=== PATIENT | female | born 1940 | race Two or more races ===

== ENCOUNTER 2021-03-14 10:26 | Inpatient (IN) | payer MEDICARE, OTHER ==
[~2021-03-14] VITALS: Ht 160 cm; Wt 72.6 kg
[2021-03-14] MEDS ORDERED: SODIUM CHLORIDE 0.9% 1,000 ML IV ONE (10:45)
[2021-03-14 11:09] LABS: Basophils # (auto) 0 10 ^3/uL (0-0.2); Eosinophils # (auto) 0 10 ^3/uL (0-0.8); Hemoglobin 11.6 g/dL (12.2-16.2); Monocytes # (auto) 0.9 10 ^3/uL (0-1.3)
[2021-03-14 11:11] LABS: Basophils % (auto) 0.2 % (0.0-2.0); Eosinophils % (auto) 0.2 % (0.0-7.0); Lymphocytes # (auto) 0.9 10 ^3/uL (0.4-5.4); Lymphocytes % (auto) 4.6 % (10.0-50.0); Mean Corpuscular Hemoglobin 33.6 pg (28.0-32.0); Mean Corpuscular Hgb Conc. 33.1 g/dL (32.0-36.0); Mean Corpuscular Volume 101.6 fL (80.0-100.0); Monocytes % (auto) 4.6 % (0.0-12.0); Neutrophils % (auto) 90.4 % (37.0-80.0); Red Blood Cells 3.44 10^6/uL (4.0-5.20); Red Cell Distribution Width 17.1 % (11.8-14.3); White Blood Cell 19.9 10^3/uL (4.4-10.8)
[2021-03-14 11:32] LABS: Urine Bacteria NONE SEEN /hpf (None Seen); Urine Blood 2+ /uL (Negative); Urine Hyaline Cast MOD /lpf (0 - 2); Urine Mucus FEW (None Seen); Urine Specific Gravity 1.016 (1.001-1.035); Urine WBC 258 /hpf (0 - 5)
[2021-03-14 12:31] LABS: Potassium 4.6 mmol/L (3.5-5.1)
[2021-03-14 12:46] LABS: Albumin 1.5 g/dL (3.4-5.0); BUN/Creatinine Ratio 22.3; Bilirubin, Total 0.6 mg/dL (0.2-1.0); Calcium 6.3 mg/dL (8.5-10.1); Total Protein 6.7 g/dL (6.4-8.2)
[2021-03-14] MEDS ORDERED: AZITHROMYCIN 500MG/ 250ML 250 ML IV ONE (13:45)
[2021-03-14] MEDS ORDERED: cefTRIAXone 1GM/50ML D5W 50 ML IV ONE (13:45)
[2021-03-14 15:53] LABS: Lactic Acid w/Reflex 2.9 mmol/L (0.4-2.0)
[2021-03-14] MEDS ORDERED: NITROGLYCERIN 0.4 MG SL TAB SL PRN (16:00)
[2021-03-14] MEDS ORDERED: ACETAMINOPHEN 325 MG TAB PO PRN (16:00)
[2021-03-14] MEDS ORDERED: PIPERACILLIN-TAZOB 3.375GM 100 ML IV ONE (16:00)
[2021-03-14] MEDS: SODIUM CHLORIDE 0.9% 1,000 ML IV SCH (17:12)
[2021-03-14] MEDS ORDERED: traMADol HCL 50 MG TAB PO PRN (18:30)
[2021-03-14] MEDS: LINEZOLID 600MG/300ML 300 ML IV SCH (22:10)
[2021-03-15] MEDS: PIPERACILLIN-TAZOB 3.375GM 100 ML IV SCH ×2 (00:30→07:45)
[2021-03-15] MEDS ORDERED: TEMAZEPAM 15 MG CAP PO ONE (01:15)
[2021-03-15] MEDS ORDERED: ALBUMIN 5% 250 ML IV ONE (02:45)
[2021-03-15] MEDS ORDERED: NOREPINEPHRINE 8 MG/250ML KIT 250 ML IV ONE (03:25)
[2021-03-15] MEDS: NOREPINEPHRINE 8 MG/250ML KIT 250 ML IV SCH ×2 (03:30→14:28)
[2021-03-15] MEDS: MORPHINE SULFATE INJECTION 2 MG/ML SYRG IV PRN ×3 (04:20→11:39)
[2021-03-15] MEDS: SODIUM CHLORIDE 0.9% 1,000 ML IV SCH (05:21)
[2021-03-15 06:52] LABS: Basophils # (auto) 0 10 ^3/uL (0-0.2); Basophils % (auto) 0.2 % (0.0-2.0); Hemoglobin 10.4 g/dL (12.2-16.2); Lymphocytes # (auto) 0.8 10 ^3/uL (0.4-5.4); Mean Corpuscular Hemoglobin 33.5 pg (28.0-32.0); Monocytes # (auto) 0.7 10 ^3/uL (0-1.3); Monocytes % (auto) 3.6 % (0.0-12.0); Nucleated Red Blood Cells % 0.1 %; Red Blood Cells 3.11 10^6/uL (4.0-5.20)
[2021-03-15 06:53] LABS: Eosinophils # (auto) 0.7 10 ^3/uL (0-0.8); Eosinophils % (auto) 3.5 % (0.0-7.0); Hematocrit 31.6 % (36.0-46.0); Mean Corpuscular Volume 101.7 fL (80.0-100.0); Neutrophils # (auto) 18.1 10 ^3/uL (1.6-8.6); Neutrophils % (auto) 88.7 % (37.0-80.0); Red Cell Distribution Width 17.1 % (11.8-14.3); White Blood Cell 20.4 10^3/uL (4.4-10.8)
[2021-03-15 07:08] LABS: Albumin 1.9 g/dL (3.4-5.0); Calcium 7.5 mg/dL (8.5-10.1); Potassium 4.7 mmol/L (3.5-5.1)
[2021-03-15 07:12] LABS: BUN/Creatinine Ratio 24.3; Bilirubin, Total 0.8 mg/dL (0.2-1.0); Total Protein 7.7 g/dL (6.4-8.2)
[2021-03-15] MEDS: LINEZOLID 600MG/300ML 300 ML IV SCH ×2 (10:10→22:15)
[2021-03-15] MEDS ORDERED: MORPHINE SULFATE INJECTION 2 MG/ML SYRG IV PRN (11:15)
[2021-03-15] MEDS ORDERED: HEPARIN SODIUM (PORCINE) 5000 UNITS/ML 1ML VIAL IV ONE (12:15)
[2021-03-15] MEDS ORDERED: MEROPENEM 500MG IVPB 50 ML IV ONE (12:30)
[2021-03-15] MEDS: SODIUM BICARBONATE 50ML VIAL 75 ML in D5W 5% 1,000 ML IV SCH ×2 (13:07→22:52)
[2021-03-15] MEDS: FAMOTIDINE (10MG/ML) 2ML VL IV SCH (13:21)
[2021-03-15 13:30] LABS: Basophils # (auto) 0.1 10 ^3/uL (0-0.2); Basophils % (auto) 0.3 % (0.0-2.0); Lymphocytes # (auto) 1.2 10 ^3/uL (0.4-5.4); Nucleated Red Blood Cells % 0.2 %
[2021-03-15 13:32] LABS: Eosinophils # (auto) 0.5 10 ^3/uL (0-0.8); Eosinophils % (auto) 2.3 % (0.0-7.0); Hematocrit 32.9 % (36.0-46.0); Hemoglobin 10.7 g/dL (12.2-16.2); Lymphocytes % (auto) 5.7 % (10.0-50.0); Mean Corpuscular Hemoglobin 33.2 pg (28.0-32.0); Mean Corpuscular Hgb Conc. 32.5 g/dL (32.0-36.0); Mean Corpuscular Volume 102.3 fL (80.0-100.0); Monocytes # (auto) 0.9 10 ^3/uL (0-1.3); Monocytes % (auto) 4.4 % (0.0-12.0); Neutrophils # (auto) 17.5 10 ^3/uL (1.6-8.6); Neutrophils % (auto) 87.3 % (37.0-80.0); Red Blood Cells 3.22 10^6/uL (4.0-5.20); Red Cell Distribution Width 17.5 % (11.8-14.3); White Blood Cell 20.1 10^3/uL (4.4-10.8)
[2021-03-15 13:50] LABS: INR 1.37 (0.9-1.15); Partial Thromboplastin Time 46.4 sec (23.6-33.0)
[2021-03-15 14:07] LABS: Folate (Folic Acid) 12.09 ng/mL (5.38-24)
[2021-03-15] MEDS: HEPARIN DRIP/D5W 100UNITS/ML 250 ML IV SCH (14:25)
[2021-03-15] MEDS: MEROPENEM 500MG IVPB 50 ML IV SCH (20:47)
[2021-03-15 20:51] LABS: INR 1.44 (0.9-1.15)
[2021-03-15] MEDS ORDERED: MEROPENEM 1GM IVPB 100 ML IV SCH (22:00)
[2021-03-15] MEDS ORDERED: DIGOXIN (250MCG/ML) 2 ML AMPULE ONE ×2 (22:20→22:45)
[2021-03-15] MEDS ORDERED: AMIODARONE 450mg/250ml AE 250 ML IV ONE (23:08)
[2021-03-15] MEDS ORDERED: AMIODARONE 450mg/250ml AE 250 ML IV SCH (23:15)
[2021-03-16] MEDS: SODIUM BICARBONATE 50ML VIAL 75 ML in D5W 5% 1,000 ML IV SCH (00:32)
[2021-03-16 02:00] VITALS: BP 129/59
[2021-03-16] MEDS: AMIODARONE 450mg/250ml AE 250 ML IV SCH ×3 (05:23→16:21)
[2021-03-16 06:54] VITALS: BP 117/76
[2021-03-16 07:16] LABS: BUN/Creatinine Ratio 23.3; Blood Urea Nitrogen 41 mg/dL (7-18); Carbon Dioxide 12 mmol/L (21-32); GFR African American 36 mL/min; GFR Non-African American 30 mL/min; Glucose 228 mg/dL (74-106)
[2021-03-16 07:43] LABS: Hematocrit 38.6 % (36.0-46.0); Hemoglobin 12.6 g/dL (12.2-16.2); Mean Corpuscular Hemoglobin 34.2 pg (28.0-32.0); Mean Corpuscular Hgb Conc. 32.5 g/dL (32.0-36.0); Mean Corpuscular Volume 105.3 fL (80.0-100.0); Red Blood Cells 3.67 10^6/uL (4.0-5.20); Red Cell Distribution Width 17.8 % (11.8-14.3); White Blood Cell 22.5 10^3/uL (4.4-10.8)
[2021-03-16 07:54] LABS: Basophils % (manual) 0 (0.0-2.0); Blast Cells 0; Eosinophils % (manual) 0 (0-7); Myelocytes % 0; Promyelocytes % 0; Reactive Lymphocytes 0
[2021-03-16 08:09] LABS: INR 1.66 (0.9-1.15)
[2021-03-16 08:19] LABS: Partial Thromboplastin Time 73.3 sec (23.6-33.0)
[2021-03-16 08:34] LABS: Band Neutrophils % (manual) 22; Lymphocytes % (manual) 11 (10.0-50.0); Metamyelocytes % 1; Monocytes % (manual) 1 (0-12)
[2021-03-16] MEDS: MEROPENEM 500MG IVPB 50 ML IV SCH ×2 (08:37→20:33)
[2021-03-16 08:42] LABS: CRP High Sensitivity > 19.0 mg/dL (< 0.3)
[2021-03-16] MEDS: DIGOXIN (250MCG/ML) 2 ML AMPULE IV SCH ×2 (09:14→14:30)
[2021-03-16 09:16] LABS: Anion Gap 12 (5-15); Chloride 105 mmol/L (98-107); Potassium 5.4 mmol/L (3.5-5.1); Sodium 129 mmol/L (136-145)
[2021-03-16] MEDS: HEPARIN DRIP/D5W 100UNITS/ML 250 ML IV SCH ×2 (09:27→16:38)
[2021-03-16] MEDS ORDERED: InsuLIN REG 1unit/0.01ml Soln (100units/ml) IV ONE (09:30)
[2021-03-16] MEDS: FUROSEMIDE 100 MG/10ML VIAL IV SCH ×2 (09:30→18:16)
[2021-03-16] MEDS ORDERED: DEXTROSE (50%) 50ML SYRG IV ONE (09:30)
[2021-03-16] MEDS ORDERED: CALCIUM GLUC 1,000mg/50ml-NS 50 ML IV ONE (09:30)
[2021-03-16] MEDS: NOREPINEPHRINE 8 MG/250ML KIT 250 ML IV SCH ×2 (09:31→21:10)
[2021-03-16] MEDS ORDERED: DIGOXIN (250MCG/ML) 2 ML AMPULE IV ONE (10:00)
[2021-03-16 10:14] VITALS: BP 95/51
[2021-03-16] MEDS ORDERED: ALBUMIN 25% 100 ML IV ONE (10:30)
[2021-03-16 11:11] LABS: Magnesium 1.8 mg/dL (1.6-2.6); Phosphorus 3.2 mg/dL (2.5-4.90)
[2021-03-16] MEDS ORDERED: LORazepam 2MG/ML-1ML VIAL IV ONE (11:15)
[2021-03-16] MEDS: FAMOTIDINE (10MG/ML) 2ML VL IV SCH (11:28)
[2021-03-16] MEDS: LINEZOLID 600MG/300ML 300 ML IV SCH (11:28)
[2021-03-16] MEDS ORDERED: LIDOCAINE 1% HCL (LOCAL ANESTH.) INJ 20ML MDV ONE (12:01)
[2021-03-16 14:01] VITALS: BP 113/54
[2021-03-16 15:03] LABS: INR 1.65 (0.9-1.15)
[2021-03-16 15:22] LABS: Partial Thromboplastin Time 109.2 sec (23.6-33.0)
[2021-03-16] MEDS ORDERED: ACETAMINOPHEN 650 MG RECT SUPP PR ONE (16:45)
[2021-03-16 18:30] VITALS: BP 119/43
[2021-03-16 22:22] VITALS: BP 107/45
[2021-03-17] MEDS: SODIUM BICARBONATE 50ML VIAL 75 ML in D5W 5% 1,000 ML IV SCH ×3 (01:57→18:00)
[2021-03-17 02:00] VITALS: BP 113/59
[2021-03-17 02:04] LABS: INR 1.51 (0.9-1.15); Partial Thromboplastin Time 50.2 sec (23.6-33.0)
[2021-03-17] MEDS: MORPHINE SULFATE INJECTION 2 MG/ML SYRG IV PRN ×3 (04:14→20:48)
[2021-03-17] MEDS: LINEZOLID 600MG/300ML 300 ML IV SCH ×2 (04:49→11:38)
[2021-03-17 06:05] VITALS: BP 109/42
[2021-03-17] MEDS: MEROPENEM 500MG IVPB 50 ML IV SCH ×2 (08:34→20:00)
[2021-03-17] MEDS: FUROSEMIDE 100 MG/10ML VIAL IV SCH ×2 (08:40→18:00)
[2021-03-17 09:15] VITALS: BP 124/61
[2021-03-17 09:21] LABS: Albumin 1.9 g/dL (3.4-5.0); Calcium 7.6 mg/dL (8.5-10.1); Magnesium 2.4 mg/dL (1.6-2.6); Potassium 4.9 mmol/L (3.5-5.1)
[2021-03-17 09:25] LABS: BUN/Creatinine Ratio 25.4; Bilirubin, Total 0.9 mg/dL (0.2-1.0); Phosphorus 3.6 mg/dL (2.5-4.90); Total Protein 7.6 g/dL (6.4-8.2)
[2021-03-17] MEDS ORDERED: LORazepam 2MG/ML-1ML VIAL ONE (09:28)
[2021-03-17] MEDS ORDERED: LORazepam 2MG/ML-1ML VIAL IV ONE (09:30)
[2021-03-17 09:33] LABS: Basophils # (auto) 0.1 10 ^3/uL (0-0.2); Basophils % (auto) 0.5 % (0.0-2.0); Eosinophils # (auto) 0.1 10 ^3/uL (0-0.8); Eosinophils % (auto) 0.4 % (0.0-7.0); Lymphocytes # (auto) 1.4 10 ^3/uL (0.4-5.4); Lymphocytes % (auto) 6.9 % (10.0-50.0); Mean Corpuscular Hemoglobin 32.9 pg (28.0-32.0); Mean Corpuscular Hgb Conc. 31.5 g/dL (32.0-36.0); Mean Corpuscular Volume 104.3 fL (80.0-100.0); Monocytes % (auto) 4.8 % (0.0-12.0); Neutrophils % (auto) 87.4 % (37.0-80.0); Nucleated Red Blood Cells % 0.3 %; Red Blood Cells 3.35 10^6/uL (4.0-5.20); Red Cell Distribution Width 17.5 % (11.8-14.3); White Blood Cell 20.6 10^3/uL (4.4-10.8)
[2021-03-17] MEDS ORDERED: DIGOXIN (250MCG/ML) 2 ML AMPULE IV SCH (10:00)
[2021-03-17] MEDS: FAMOTIDINE (10MG/ML) 2ML VL IV SCH (11:38)
[2021-03-17] MEDS: HEPARIN DRIP/D5W 100UNITS/ML 250 ML IV SCH (16:24)
[2021-03-17 20:48] VITALS: BP 128/60
== END 2021-03-17 20:51 | disposition hospice, home (50) | DRG 871 ==
LOC: EDBD 10:26 → ER 10:26 → TELE 15:56
PROVIDERS: ADMIT Internal Medicine; ATTEND Internal Medicine
PROC: 0S9C3ZZ Drainage of Right Knee Joint, Percutaneous Approach (ICD-10-PCS; principal; 2021-03-16)
PROC: 5A09357 Assistance with Respiratory Ventilation, Less than 24 Consecutive Hours, Continuous Positive Airway Pressure (ICD-10-PCS; 2021-03-16)
DX: A41.02 Sepsis due to Methicillin resistant Staphylococcus aureus (principal); I50.23 Acute on chronic systolic (congestive) heart failure; J96.00 Acute respiratory failure, unspecified whether with hypoxia or hypercapnia; J12.82 Pneumonia due to coronavirus disease 2019; U07.1 COVID-19; R65.21 Severe sepsis with septic shock; G93.41 Metabolic encephalopathy; E44.0 Moderate protein-calorie malnutrition; I82.411 Acute embolism and thrombosis of right femoral vein; N17.9 Acute kidney failure, unspecified; I13.0 Hypertensive heart and chronic kidney disease with heart failure and stage 1 through stage 4 chronic kidney disease, or unspecified chronic kidney disease; M25.461 Effusion, right knee; D69.6 Thrombocytopenia, unspecified; E87.5 Hyperkalemia; M06.9 Rheumatoid arthritis, unspecified; I48.91 Unspecified atrial fibrillation; N18.9 Chronic kidney disease, unspecified; E11.22 Type 2 diabetes mellitus with diabetic chronic kidney disease; Z66 Do not resuscitate; Z68.28 Body mass index [BMI] 28.0-28.9, adult; Z86.718 Personal history of other venous thrombosis and embolism; Z86.79 Personal history of other diseases of the circulatory system; Z51.5 Encounter for palliative care
CPT/HCPCS: 36415; 36600; 51702; 70450; 71045; 71250; 73560; 73700; 76775; 76942; 80048; 80053; 80320; 81001; 82140; 82607; 82746; 82805; 82962; 83605; 83735; 83880; 84100; 84439; 84443; 84484; 85007; 85025; 85027; 85379; 85610; 85652; 85730; 86141; 87040; 87077; 87086; 87186; 87205; 87426; 89051; 89060; 93005; 93306; 93970; 94003; 94660; 96361; 96365; 96366; 96367; 99291; G0378; J0696; J1815; J2001; J2185; J2543; J3490; P9047